=== PATIENT | female | born 1995 | race Caucasian/White ===

== ENCOUNTER 2023-05-30 10:02 | Emergency (ER) | payer OTHER, BC, SELFPAY ==
--- NOTE | ~2023-05-30 | XR_ITS ---
EXAMINATION: XR knee LT min 4V DATE: 05/30/2023 10:24 INDICATION: Left knee pain. Injury. TECHNIQUE: 4 views of left knee were obtained. COMPARISON: None. FINDINGS: Bone alignment is normal. No fracture. Joint spaces are normal. No knee joint effusion. IMPRESSION: 1. Normal left knee. Reviewed, dictated and finalized at location E. IMPRESSION: 1. Normal left knee.
[2023-05-30 10:05] VITALS: BP 135/79; PULSE 94; RESP 18; TEMP 36.5; O2SAT 100
--- NOTE | 2023-05-30 11:11 | ED.LOWEXIN ---
HPI - Extremity Injury (Lower) General Chief Complaint: Extremity Injury, Lower Stated Complaint: Fall Time Seen by Provider: 05/30/23 10:34 History of Present Illness HPI Narrative: 28-year-old female reports for evaluation for left knee pain after a mechanical fall that occurred prior to arrival. Patient states she was walking a great [place] when a great team pulled on the leash and caused her to fall and land directly on the anterior aspect of her left knee. She is reporting pain to the anterior knee that is worse with weightbearing. She denies a twisting injury or mechanism. Denies paresthesias. Denies hitting her head or LOC, no other injuries acquired. Review of Systems Review of Systems: CONSTITUTIONAL: Denies fever, chills EYES: Denies visual changes, redness, or discharge. ENT: Denies rhinorrhea, congestion, sore throat, or otalgia. CARDIOVASCULAR: Denies chest pain, palpitations, or edema. RESPIRATORY: Denies cough or dyspnea. GASTROINTESTINAL: Denies abdominal pain, nausea, vomiting, or diarrhea. GENITOURINARY: Denies dysuria or hematuria. SKIN: Denies rash or itching. MUSCULOSKELETAL: See HPI NEUROLOGIC: Denies headache, numbness, dizziness, or weakness. PSYCHIATRIC: Denies anxiety or depression. Exam Narrative: GENERAL: Well-appearing, in no acute distress. HEAD: Normocephalic NECK: Supple. CHEST: No respiratory distress. Clear to auscultation, no adventitious breath sounds. HEART: Regular rate and rhythm. No murmur heard. Normal peripheral pulses. EXTREMITIES: LLE: Tenderness to the proximal tibia into the lateral joint line without overlying ecchymosis, edema, erythema, lacerations or abrasions. No tenderness to remainder of knee, tib-fib, ankle, foot, femur or hip. Negative anterior and posterior drawer. No laxity with varus or valgus stress. DP pulse 2+. Sensation intact throughout. Patient able to actively and passively move knee and ankle. SKIN: Warm, dry, no rash. NEURO: No focal deficits. Alert and oriented x3. PSYCH: Normal mood and affect. Course Vital Signs Vital signs: Vital Signs Temperature 97.7 F 05/30/23 10:05 Pulse Rate 94 05/30/23 10:05 Respiratory Rate 18 05/30/23 10:05 Blood Pressure 135/79 05/30/23 10:05 Pulse Oximetry 100 05/30/23 10:05 Oxygen Delivery Room Air 05/30/23 10:05 Temperature 97.7 F 05/30/23 10:05 Pulse Rate 94 05/30/23 10:05 Respiratory Rate 18 05/30/23 10:05 Blood Pressure 135/79 05/30/23 10:05 Pulse Oximetry 100 05/30/23 10:05 Oxygen Delivery Room Air 05/30/23 10:05 MDM - Extremity Injury (Lower) MDM Narrative Medical decision making narrative: 28-year-old female reports for evaluation for left knee pain after a mechanical fall that occurred prior to arrival. See HPI for further history. Vitals are stable and exam is significant for the above. She is neurovascularly intact. X-rays show no acute osseous abnormality. Labs and imaging discussed with the patient. Mechanism and exam are not consistent with ligamentous injury. Ibuprofen, Felice bandage and crutches provided. Encourage close PCP follow-up, RICE, Tylenol and ibuprofen. Strict ED return precautions discussed. She is agreeable with the plan verbalized understanding. Discharged in stable condition. Medical Records Attestation: I reviewed the patient's medical records. Imaging Data Radiologist's impression: Impressions Knee X-Ray 05/30/23 10:25 IMPRESSION: 1. Normal left knee. Discharge Plan Discharge Clinical Impression: Contusion of knee Qualifiers: Encounter type: initial encounter Laterality: left Qualified Code(s): S80.02XA - Contusion of left knee, initial encounter Patient Disposition: Home, Self-Care Condition: Stable Instructions: Antibiotic Form, Knee Pain (ED) Additional Instructions: Your evaluated emergency department for left knee pain. Your x-rays are unremarkable and your exam is reassuring. Nandini
[2023-05-30] MEDS: Please add drug allergy info to patient profile. XX (11:31)
[2023-05-30] MEDS: IBUPROFEN 600 MG TABLET PO (11:31)
[2023-05-30 11:50] VITALS: BP 122/89; PULSE 87; RESP 15; O2SAT 99
== END 2023-05-30 11:52 | disposition home or self-care (01) ==
PROVIDERS: Emergency Provider Physician Assistant
DX: S80.02XA Contusion of left knee, initial encounter (principal); Y93.K1 Activity, walking an animal; W54.8XXA Other contact with dog, initial encounter
CPT/HCPCS: 73564; 99283; A9270

== ENCOUNTER 2024-02-11 08:28 | Emergency (ER) | payer BC, SELFPAY ==
--- NOTE | ~2024-02-11 | CT_ITS ---
EXAMINATION: CT abdomen pelvis w con DATE: 02/11/2024 09:23 INDICATION: Right lower quadrant abdominal pain TECHNIQUE: Computed tomography (CT) of the abdomen and pelvis was performed with 100 mL Omnipaque-350 intravenous contrast. Automated exposure control and iterative reconstruction technique were employe d. The dose-length product was 1190.99 mGy-cm. COMPARISON: None FINDINGS: Lung bases are clear. Heart size is normal. No pericardial or pleural effusion. A few small hepatic c ysts measuring up to 1 cm. Liver, spleen, bilateral adrenal glands and left kidney are normal. 1.2 cm right renal cyst. There are several surgical clips at the head of the pancreas where there appears t o be a parenchymal defect likely related to prior surgery. Correlate with surgical history. Bowels in cluding the appendix are normal. Bladder, retroverted uterus and bilateral adnexa are unremarkable. N o free intraperitoneal gas or fluid. No pathologically enlarged abdominal or pelvic lymphadenopathy. Mild likely physiologic anterior wedging at T11 and minimal at T12. Mild thoracic and minimal lumbar spondylosis. IMPRESSION: 1. No acute intra-abdominal/pelvic process. Specifically the appendix is normal. Reviewed, dictated and finalized at location A. IMPRESSION: 1. No acute intra-abdominal/pelvic process. Specifically the appendix is normal .
--- NOTE | ~2024-02-11 | US_ITS ---
EXAMINATION: US pelvic complete w TV DATE: 02/11/2024 10:51 INDICATION: Lower abdominal pain TECHNIQUE: Multiple transabdominal and endovaginal sonographic images of the pelvis were obtained. COMPARISON: None. FINDINGS: The uterus measures 6.5 x 3.3 x 4.7 cm. The endometrial complex measures . mm in thickness. The righ t ovary measures 3.0 x 2.6 x 2.3 cm. The left ovary measures 3.1 x 2.5 x 2.5 cm. There are a few sub centimeters anechoic cysts/follicles at the periphery of both the left and right ovaries. Vascular fl ow with both arterial and venous waveforms identified in both ovaries on color Doppler. There is mini mal free fluid in the pelvis. IMPRESSION: 1. Multiple subcentimeter peripheral anechoic cysts/follicles at both ovaries which can be seen with polycystic ovarian disease. Otherwise unremarkable pelvic ultrasound with minimal likely physiologic free fluid in the pelvis. Reviewed, dictated and finalized at location A. IMPRESSION: 1. Multiple subcentimeter peripheral anechoic cysts/follicles at both ovaries w hich can be seen with polycystic ovarian disease. Otherwise unremarkable pelvic ultrasound with minimal likely physiologic free fluid in the pelvis.
[2024-02-11 08:31] VITALS: BP 152/96; PULSE 123; RESP 19; TEMP 36.7; O2SAT 100
[2024-02-11 08:43] LABS: Basophils Percent Auto 0.3 % (0.2-1.2); Eosinophils Absolute Auto 0.2 K/mm3 (0-0.3); Eosinophils Percent Auto 1.3 % (0-4.4); Hematocrit 41.2 % (37.0-47.0); Hemoglobin 13.2 g/dL (12.0-15.0); Immature Granulocyte Absolute 0.04 K/mm3 (0.00-0.031); Immature Granulocyte Percent A 0.3 % (0-0.5); Lymphocytes Absolute Auto 3.52 K/mm3 (0.9-3.2); Lymphocytes Percent Auto 29.9 % (18.3-44.2); Mean Corpuscular Hemoglobin 27.4 pg (26-34); Mean Corpuscular Volume 85.5 fl (80-100); Mean Platelet Volume 10.9 fl (7.4-10.4); Monocytes Absolute Auto 0.5 K/mm3 (0.1-0.6); Monocytes Percent Auto 4.6 % (2.6-8.5); Neutrophils Absolute Auto 7.5 K/mm3 (1.3-6.7); Neutrophils Percent Auto 63.6 % (45.5-73.1); Platelet Count Result 316 k/mm3 (150-375); Red Blood Count 4.82 M/mm3 (4.2-5.4); Red Cell Distribution Width 14.5 % (11.5-14.5); White Blood Count 11.8 K/mm3 (4.5-10.0)
[2024-02-11 08:53] LABS: Alanine Aminotransferase 31 U/L (6-35); Albumin Level 4.5 g/dL (3.5-5.1); Alkaline Phosphatase 98 U/L (38-126); Anion Gap 10 mmol/L (4-12); Aspartate Amino Transferase 24 U/L (14-36); Bilirubin,Total 0.5 mg/dL (0.2-1.3); Blood Urea Nitrogen 14 mg/dL (7-17); Calcium 9.3 mg/dL (8.4-10.2); Carbon Dioxide 26 mmol/L (22-30); Chloride 104 mmol/L (98-107); Estimated CRCL calculation 82 ml/min; Estimated Glomerular Filt Rate > 60; Glucose 118 mg/dL (65-110); Lipase 73 U/L (23-300); Potassium 3.9 mmol/L (3.4-5.0); Sodium 140 mmol/L (137-145)
[2024-02-11 08:53] LABS: Appearance Urine Clear (Clear); Bacteria Urine None Seen /hpf; Bilirubin Urine Negative (Negative); Blood Urine Negative (Negative); Color Urine Yellow (Yellow); Glucose Urine UA Negative (Negative); Ketones Urine Negative (Negative); Leukocyte Esterase Ur Trace LEU/UL (Negative); Nitrate Urine Negative (Negative); Non Pathogenic Casts 0-2; Protein Urine Negative (Negative); RBC Urine 0-2 /hpf (0-2); Specific Grav Ur 1.019 (1.001-1.035); Squamous Epithelial Cell Urine Occasional /hpf (Few); WBC Urine 0-5 /hpf (0-3); pH Urine 5.5 (5.0-9.0)
[2024-02-11 08:54] LABS: Add Urine Microscopic? YES
[2024-02-11] MEDS: MORPHINE SULFATE (*CRX) 4 MG/ML INJ IV PUSH (09:35)
[2024-02-11] MEDS: ONDANSETRON INJ 4 MG/2 ML VIAL IV PUSH (09:35)
[2024-02-11 09:36] VITALS: BP 134/69; PULSE 95; RESP 18; TEMP 36.5; O2SAT 98
[2024-02-11 10:30] VITALS: BP 119/71; PULSE 77; RESP 18; TEMP 36.6; O2SAT 97
--- NOTE | 2024-02-11 10:46 | ED.GENADULT ---
HPI - General Adult General Chief complaint: Abdominal Pain Stated complaint: ABDOMINAL PAIN Time Seen by Provider: 02/11/24 08:39 History of Present Illness HPI narrative: Patient is a 29-year-old female who presents ER with abdominal pain. Cramping not her abdomen and has been down to her right lower abdomen. Has history of PCOS. No urinary frequency urgency or dysuria. No chest pain chest pressure. No aggravating or alleviating factors. No vaginal bleeding or vaginal discharge. Related Data Allergies Allergy/AdvReac Type Severity Reaction Status Date / Time No Known Allergies Allergy Verified 02/11/24 08:33 Review of Systems Review of Systems: All systems reviewed & are unremarkable except as noted in HPI and below Constitutional: Constitutional: Reports no additional constitutional complaints ENT: Reports system reviewed and no additional complaints, except as documented Cardiovascular: Cardiovascular: Reports no additional cardiovascular complaints Respiratory: Respiratory: Reports no additional respiratory complaints Gastrointestinal: Gastrointestinal: Reports abdominal pain, Denies nausea and Denies vomiting Musculoskeletal: Musculoskeletal: Reports no additional musculoskeletal complaints PMFSH Past Medical History Medical History (Updated 02/11/24 @ 12:13 by Slim López MD) Polycystic ovarian syndrome Exam Narrative: GENERAL: Well-appearing, well-nourished, and in no acute distress. HEAD: Normocephalic, atraumatic. ENT: Mucous membranes moist. CHEST: Clear to auscultation. No respiratory distress. HEART: Regular rate and rhythm. Normal peripheral pulses. ABDOMEN: Soft, nontender, nondistended. EXTREMITIES: Normal range of motion. No edema. SKIN: Warm, dry, no rash. NEURO: Alert and oriented x3. PSYCH: Normal mood and affect. Course Course Emergency Course: Patient formed results. Discharge home. Pain improved. Vital Signs Vital signs: Vital Signs Temperature 98.1 F 02/11/24 08:31 Pulse Rate 123 H 02/11/24 08:31 Respiratory Rate 19 02/11/24 08:31 Blood Pressure 152/96 H 02/11/24 08:31 Pulse Oximetry 100 02/11/24 08:31 Oxygen Delivery Room Air 02/11/24 08:31 Temperature 97.8 F 02/11/24 11:35 Pulse Rate 89 02/11/24 11:35 Respiratory Rate 16 02/11/24 11:35 Blood Pressure 122/68 02/11/24 11:35 Pulse Oximetry 99 02/11/24 11:35 Oxygen Delivery Room Air 02/11/24 08:31 Medical Decision Making Vital Signs Vital Signs: Vital Signs Temperature 98.1 F 02/11/24 08:31 Pulse Rate 123 H 02/11/24 08:31 Respiratory Rate 19 02/11/24 08:31 Blood Pressure 152/96 H 02/11/24 08:31 Pulse Oximetry 100 02/11/24 08:31 Oxygen Delivery Room Air 02/11/24 08:31 Temperature 97.8 F 02/11/24 11:35 Pulse Rate 89 02/11/24 11:35 Respiratory Rate 16 02/11/24 11:35 Blood Pressure 122/68 02/11/24 11:35 Pulse Oximetry 99 02/11/24 11:35 Oxygen Delivery Room Air 02/11/24 08:31 Lab Data 02/11/24 08:38 02/11/24 08:38 Labs: Lab Results 02/11/24 02/11/24 Range/Units 08:38 08:43 WBC 11.8 H (4.5-10.0) K/mm3 RBC 4.82 (4.2-5.4) M/mm3 Hgb 13.2 (12.0-15.0) g/dL Hct 41.2 (37.0-47.0) % MCV 85.5 (80-100) fl MCH 27.4 (26-34) pg MCHC 32.0 (32-36) g/dl RDW 14.5 (11.5-14.5) % Plt Count 316 (150-375) k/mm3 MPV 10.9 H (7.4-10.4) fl Immature Gran % (Auto) 0.3 (0-0.5) % Neut % (Auto) 63.6 (45.5-73.1) % Lymph % (Auto) 29.9 (18.3-44.2) % [place] % (Auto) 4.6 (2.6-8.5) % Eos % (Auto) 1.3 (0-4.4) % Baso % (Auto) 0.3 (0.2-1.2) % Lymph # (Auto) 3.52 H (0.9-3.2) K/mm3 [place] # (Auto) 0.5 (0.1-0.6) K/mm3 Eos # (Auto) 0.2 (0-0.3) K/mm3 Baso # (Auto) 0.0 (0.0-0.1) K/mm3 Abs Immat Gran (auto) 0.04 H (0.00-0.031) K/mm3 Absolute Neuts (auto) 7.5 H (1.3-6.7) K/mm3 Absolute Nucleated RBC 0.000 (0.0-0.012) K/
[2024-02-11 11:35] VITALS: BP 122/68; PULSE 89; RESP 16; TEMP 36.6; O2SAT 99
[2024-02-11 12:24] VITALS: BP 118/68; PULSE 66; RESP 18; TEMP 36.7; O2SAT 98
== END 2024-02-11 12:26 | disposition home or self-care (01) ==
PROVIDERS: Emergency Provider Emergency Medicine
DX: E28.2 Polycystic ovarian syndrome (principal)
CPT/HCPCS: 36415; 74177; 76830; 76856; 80053; 81001; 81025; 83690; 85025; 96374; 96375; 99284; J2270; J2405; Q9967

== ENCOUNTER 2024-07-15 17:08 | Emergency (ER) | payer BC, SELFPAY ==
--- NOTE | ~2024-07-15 | XR_ITS ---
EXAMINATION: XR pelvis 1-2V DATE: 07/15/2024 18:29 INDICATION: Left hip injury. Fall. TECHNIQUE: An anteroposterior view of the pelvis was obtained. COMPARISON: None. FINDINGS: Alignment is normal. No fracture. Joint spaces are normal. IMPRESSION: 1. Normal pelvis. Reviewed, dictated and finalized at location A. Y ROOM SUPERVISOR IMPRESSION: 1. Normal pelvis.
--- NOTE | ~2024-07-15 | XR_ITS ---
EXAMINATION: XR femur LT min 2V DATE: 07/15/2024 18:29 INDICATION: Left hip injury. Fall. TECHNIQUE: 2 views of left femur on 4 radiographs were obtained. COMPARISON: None. FINDINGS: Alignment is normal. No fracture. Joint spaces are normal. IMPRESSION: 1. Normal left femur. Reviewed, dictated and finalized at location A. OLE PRESSER IMPRESSION: 1. Normal left femur.
--- NOTE | ~2024-07-15 | XR_ITS ---
EXAMINATION: XR foot LT min 3V DATE: 07/15/2024 18:29 INDICATION: Left foot injury. Fall. TECHNIQUE: 3 views of left foot were obtained. COMPARISON: None. FINDINGS: Alignment is normal. No fracture. Joint spaces are normal. IMPRESSION: 1. Normal left foot. Reviewed, dictated and finalized at location A. OR COMMISSARY AGENT IMPRESSION: 1. Normal left foot.
--- NOTE | ~2024-07-15 | XR_ITS ---
EXAMINATION: XR tibia fibula LT 2V DATE: 07/15/2024 18:29 INDICATION: Left lower leg injury. Fall. TECHNIQUE: 2 views of left tibia and fibula on 3 radiographs were obtained. COMPARISON: None. FINDINGS: Alignment is normal. No fracture. Joint spaces are normal. IMPRESSION: 1. Normal left tibia and fibula. Reviewed, dictated and finalized at location A. GER [employer]
[2024-07-15 17:31] VITALS: BP 149/88; PULSE 92; RESP 17; TEMP 36.6; O2SAT 100
--- NOTE | 2024-07-15 18:36 | ED.LOWEXIN ---
HPI - Extremity Injury (Lower) General Chief Complaint: Extremity Injury, Lower <Marry Austin APRN - Last Filed: 07/15/24 18:40> Stated Complaint: glf 07/13, left leg injury/swelling <Marry Austin APRN - Last Filed: 07/15/24 18:40> Time Seen by Provider: 07/15/24 17:30 <Marry Austin APRN - Last Filed: 07/15/24 18:40> Focused HPI: Patient is a 29-year-old female who presents to the ER with left leg pain that starts in her left hip and goes all the way down to her left foot. She reports she slipped on mud 2 days ago and injured her left lower extremity. Patient reports it is very painful to move her left hip, left knee, and left ankle. She reports the entire extremity is swollen. patient reports she has been taking Tylenol and ibuprofen home for pain control. She denies any head injury or loss of consciousness. Patient rates her pain at a 6/10 at this time. GENERAL: Well-appearing, well-nourished, and in no acute distress. HEAD: Normocephalic, atraumatic. CHEST: Clear to auscultation. ?No respiratory distress. HEART: Regular rate and rhythm.? NEURO: ?Alert and oriented x3. FROM in all extremities. Patient screened in triage and initial orders placed.? ?Additional care and disposition to be based upon?diagnostic testing and treatment. <Marry Austin APRN - Last Filed: 07/15/24 18:40> Source: patient <Natan Monson PA-C - Last Filed: 07/16/24 01:29> Mode of arrival: ambulatory <Natan Monson PA-C - Last Filed: 07/16/24 01:29> Limitations: no limitations <Natan Monson PA-C - Last Filed: 07/16/24 01:29> History of Present Illness HPI Narrative: Agree with triage note <Natan oMnson PA-C - Last Filed: 07/16/24 01:29> Related Data Allergies/Adverse Reactions: Allergies Allergy/AdvReac Type Severity Reaction Status Date / Time No Known Allergies Allergy Verified 07/15/24 19:50 <Marry Austin APRN - Last Filed: 07/15/24 18:40> Review of Systems Review of Systems: All systems as dictated in HPI <Natan Monson PA-C - Last Filed: 07/16/24 01:29> PMFSH Past Medical History Medical History: Medical History (Updated 07/16/24 @ 00:01 by Background Dajennifer) Polycystic ovarian syndrome <Marry Austin APRN - Last Filed: 07/15/24 18:40> Exam Narrative: GENERAL: Well-appearing, well-nourished, and in no acute distress. HEAD: Normocephalic, atraumatic. EYES: PERRLA and EOMI. ENT: Nares clear, no rhinorrhea or epistaxis. Mucous membranes moist. Oropharynx without tonsillar hypertrophy exudate or other lesions. NECK: Supple. No adenopathy or masses. CHEST: No respiratory distress. Clear to auscultation. No wheezes rales or rhonchi HEART: Regular rate and rhythm. No murmur heard. Normal peripheral pulses. ABDOMEN: Soft, nontender, nondistended, normal active bowel sounds. MSK: LLE: Mild tenderness to the left lateral hip. Mild tenderness to the medial knee. No deformities. No bruising. Neurovascularly intact distally. Normal ankle joint exam RLE: Benign SKIN: Warm, dry, no rash. NEURO: Alert and oriented x4. No focal deficits. PSYCH: Normal mood and affect. <Natan Monson PA-C - Last Filed: 07/16/24 01:29> Course Vital Signs Vital signs: Vital Signs Temperature 97.8 F 07/15/24 17:31 Pulse Rate 92 07/15/24 17:31 Respiratory Rate 17 07/15/24 17:31 Blood Pressure 149/88 H 07/15/24 17:31 Pulse Oximetry 100 07/15/24 17:31 Oxygen Delivery Room Air 07/15/24 17:31 Temperature 98.6 F 07/15/24 19:43 Pulse Rate 88 07/15/24 19:43 Respiratory Rate 18 07/15/24 19:43 Blood Pressure 138/86 07/15/24 19:43 Pulse Oximetry 98 07/15/24 19:43 Oxygen Delivery Room Air 07/15/24 17:31 <Marry Austin APRN - Last Filed: 07/15/24 18:40> Vital Signs Temperature 97.8 F 07/15/24 17:31 Pulse Rate 92 07/15/24 17:31 Respiratory Rate 17 07/15/24 17:31 Blood Pressure 149/88 H 07/15/24 17:31 Pulse Oximetry 100 07/15/24 17:31 Oxygen Delivery Room Air 07/15/24 17:31 Temperature 98.6 F 07/15/24 19:43 Pulse Rate 88 07/15/24 19:43 Respiratory Rate 18 07/15/24 19:43 Blood Pressure 138/86 07/15/24 19:43 Pulse Oximetry 98 07/15/24 19:43 Oxygen Delivery Room Air 07/15/24 17:31 <Natan Monson PA-C - Last Filed: 07/16/24 01:29> MDM - Extremity Injury (Lower) MDM Narrative Medical decision making narrative: This is a 29-year-old female who presents to the ED for chief complaint of left lower extremity injury with fall today. Vitals are normal. Exam shows mild left lateral hip tenderness. Otherwise exam is relatively benign. X-ray imaging of the pelvis, left femur, left tib-fib, left foot are all negative for acute findings. Patient was given Toradol shot here. Presentation consistent with strains and contusions. Patient will be discharged in stable condition. Supportive measures discussed and return precautions given. Patient is understanding and agreeable with plan for discharge with PCP follow-up. <Natan Monson PA-C - Last Filed: 07/16/24 01:29> Discharge Plan Discharge Clinical Impression: Fall, Acute pain of left hip, Strain of knee and leg, left <Marry Austin APRN - Last Filed: 07/15/24 18:40> Patient Disposition: Home, Self-Care <Marry Austin APRN - Last Filed: 07/15/24 18:40> Condition: Stable <Marry Austin APRN - Last Filed: 07/15/24 18:40> Instructions: Antibiotic Form <Marry Austin APRN - Last Filed: 12/17/24 18:40> Additional Instructions: Your seen in the ER today for a fall and left leg injuries. No fractures were emergent findings on the x-rays. These are probably strains/contusions which will resolve over the next week or 2. Use regular Tylenol and ibuprofen for pain control. If you have any new or worsening symptoms please return to the ER for further evaluation. <Marry Austin APRN - Last Filed: 07/15/24 18:40> Patient Language: Kyrgyz <Marry Austin APRN - Last Filed: 07/15/24 18:40> Follow-up/Referrals: UNKNOWN,DOCTOR [Primary Care Provider] - <Marry Austin APRN - Last Filed: 07/15/24 18:40> Time of Disposition: 19:35 <Marry Austin APRN - Last Filed: 07/15/24 18:40> 19:35 <Natan Monson PA-C - Last Filed: 07/16/24 01:29>
[2024-07-15 19:43] VITALS: BP 138/86; PULSE 88; RESP 18; TEMP 37; O2SAT 98
[2024-07-15] MEDS: KETOROLAC 30 MG/ML VIAL (*BKC) IM (19:51)
== END 2024-07-15 19:57 | disposition home or self-care (01) ==
LOC: ANHED 19:37
PROVIDERS: Emergency Provider Physician Assistant
DX: S79.912A Unspecified injury of left hip, initial encounter (principal); S86.912A Strain of unspecified muscle(s) and tendon(s) at lower leg level, left leg, initial encounter; E28.2 Polycystic ovarian syndrome; W01.0XXA Fall on same level from slipping, tripping and stumbling without subsequent striking against object, initial encounter
CPT/HCPCS: 72170; 73552; 73590; 73630; 96372; 99284; J1885

== ENCOUNTER 2025-06-30 07:06 | Emergency (ER) | payer BC, SELFPAY ==
--- OUTSIDE RECORDS SUMMARY | 2025-06-30 07:08 | XMS_ITS | Clinical Summary ---
Author Organization [facility] Address [address] [place] [address] Care Team Providers Care Band Saw Operator Cake Cutting Name Role Phone Larisa uJrado MD Primary Care Provider [phone] Allergies No known active allergies Medications ALPRAZolam (XANAX) 0.5 mg tablet Take 1 tablet (0.5 mg total) by mouth daily as needed for anxiety 30 tablet 0 Active Additional Information Patient not taking.Reported on 02/21/2024 busPIRone (BUSPAR) 7.5 mg tabletIndication s:Generalized Anxiety Disorder Take 1 tablet (7.5 mg total) by mouth 2 (two) times a day 60 tablet 0 Active Additional Information Patient not taking.Reported on 02/21/2024 topiramate (TOPAMAX) 100 mg tabletIndication s:Intractable migraine with aura with status migrainosus Take 1 tablet (100 mg total) by mouth 2 (two) times a day 60 tablet 5 1 Active Active Problems Problem Noted Date Diagnosed Date Syncope 11/10/2020 Assessment & Plan (11/10/2020 8:49 AM CDT): Uncontrolled Increase topamax to 100mg daily Order MRI/MRA brain Refer to neurology Adult general medical exam 10/13/2020 Panic attacks 09/22/2019 Assessment & Plan (10/28/2019 11:31 AM CDT): Uncontrolled Start Buspar Stop trintellix Grief reaction 08/26/2019 Assessment & Plan (08/26/2019 11:55 AM STONE CARRIAGE OPERATOR): New Order trintellix To see counselor Moderate episode of recurrent major depressive d isorder 08/26/2019 Assessment & Plan (08/26/2019 11:55 AM STONE CARRIAGE OPERATOR): New Order trintellix Class 2 obesity due to exces s calories without serious comorbidity with body mass index (BMI) of 39.0 to 39.9 in adult 02/27/2019 Generalized anxiety disorder 07/02/2018 Assessment & Plan (10/13/2020 9:23 AM CDT): Stable Cont buspar, xanax Migraine headache 11/22/2015 Assessment & Plan (11/10/2020 8:49 AM CDT): Uncontrolled Increase topamax to 100mg daily Order MRI/MRA brain Refer to neurology Assessment & Plan (10/13/2020 9:23 AM CDT): Recurrent Restart topamax Order labs Seasonal allergic rhinitis 11/22/2015 Rib pain on left side 07/09/2013 Pain in the abdomen 05/06/2013 Pancreatic mass 06/17/2012 Overview (05/28/2024): Candy is a 17 y.o. girl who presented to OSH with abdominal pain and was diagnosed with pancreatic mass. She was transferred to for further evaluation. MRI of the abdomen revealed: Encapsulated heterogenous mass in the head of the pancreas with heterogenous enhancement as described above. 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 Surgery and Heme/onc services were consulted to help formulate a plan and it was agreed that resection is the first step. Candy was scheduled for resection approximately 1.5 weeks later and was discharged home given that she was medically quite stable. ddx would include papillary carcinoma, pseudopapillary tumor, less likely lymphoma or pseudocyst. Further differentiation and planning pending the tissue diagnosis. Overweight 03/11/2010 Poison laly 03/17/2009 Molluscum contagiosum 12/19/2005 Acute serous otitis media 07/25/2002 Overview (05/28/2024): 07/25/02 - right UTI (urinary tract infection) 11/26/2001 Overview (05/28/2024): 11/26/01 07/18/02 Nl ARABELLA Laceration of head 10/30/2001 Overview (05/28/2024): Frontal area Erythema infectiosum (fifth disease) 12/03/2000 Streptococcal pharyngitis 10/08/2000 Immunizations Immunization Administration Dates Next Due DTP / HiB 1996,1996,1996 DTaP 02/05/2001, 8,1996,1996,1 Hep A, Pediatric 03/11/2010,04/06/2006 Hep B, Adolescent or Pediatric 1996,1995,1996 Hib (PRP-D) 11/04/1997,1996,1996 ,1996 IPV 02/05/2001 Influenza, Unspecified 08/26/2019(Deferred: Mamta ent Refused) MMR 02/05/2001,11/04/1997 OPV 1996,1996,1996 PPD TEST 12/18/2000 Tdap 03/11/2010 Varicella 03/11/2010,11/04/1997 Surgical History Surgery Date Site/Laterality Comments PANCREAS SURGERY mass removed Medical History Medical History Date Comments Headache Seasonal allergies Hyperglycemia Family History Medical History Relation Name Comments No Known Problems Father Melanoma Father's Sister Diabetes Maternal Grandfather Heart disease Maternal Grandfather Hypertension Maternal Grandmother Heart disease Mother Hypertension Mother Cancer Paternal Grandfather Cancer Paternal Grandmother Hypertension Paternal Grandmother No Known Problems Sister Relation Name Status Comments Father Alive Father's Sister Maternal Grandfather Maternal Grandmother Mother Alive Paternal Grandfather Paternal Grandmother Sister Alive Social History Tobacco Use Types Packs/Day Years Used Date Smoking Tobacco: Never Smokeless Tobacco: Never Alcohol Use Standard Drinks/Week Comments Yes 0 (1 standard drink = 0.6 oz pur e alcohol) AUDIT-C Answer Date Recorded Frequency of Alcohol Consumption Never 02/27/2019 Average Number of Drinks Not on file 019 Frequency of Binge Drinking Not on file 07/2018 PHQ-2 Answer Date Recorded PHQ-2 Score 5 08/26/2019 Personal Safety Answer Date Recorded Getting School Help Needed Not on file 07/15 Comments Unknown Sex and Gender Information Value Date Recorded Sex Assigned at Not on file Legal Sex Female 12:41 AM STONE CARRIAGE OPERATOR Gender Identity Female 10/13/2020 8:49 AM CDT Sexual Orientation Straight 10/13/2020 8: 49 AM CDT Last Filed Vital Signs Vital Sign Reading Time Taken Comments Blood Pressure 100/84 05/28/2024 6:21 PM CDT Pulse 111 05/28/2024 6:21 PM CDT Temperature 37.1 C (98.8 F) 05/28/2024 6:21 PM CDT Respiratory Rate 20 05/28/2024 6:21 PM CDT Oxygen Saturation 98% 05/28/2024 6:21 PM CDT Inhaled Oxygen Concentration - - Weight 103.9 kg (229 lb) 05/28/2024 6:21 PM CDT Height 157.5 cm (5' 2) 05/28/2024 6:21 PM CDT Body Mass Index 41.88 05/28/2024 6:21 PM CDT Plan of Treatment Health Maintenance Due Date Last Done Comments Cervical Cancer Screening 1996 Hepatitis C Screening 1996 Regular Well Visit/Exam 18-64 01/29/2014 DTaP/Tdap/Td Vaccine (7 - Td or Tdap) 03/11/2020 03/11/2010, 02/05/2001, 11/04/1997, Additional history exists Depression Screening 08/26/2020 08/26/2019 HPV Vaccines (1 - 3-dose SCDM series) 01/29/2023 Influenza Vaccine (#1) 2025 Hepatitis B Screening Completed 1996 , 1996, 1996 Varicella Vaccines Completed 03/11/2010, 11/04/1997 Pneumococcal vaccine <65 Aged Out No longer eligible based on patient's age to complete this topic Insurance [employer] ACCESS OOS [employer] OOS Care Teams Band Saw Operator Cake Cutting Relationship Specialty Start Date End Date Larisa Jurado MD PCP - General Family Medicine 02/27/19
--- OUTSIDE RECORDS SUMMARY | 2025-06-30 07:08 | XMS_ITS | Clinical Summary ---
Author Organization [facility] Address [facility] [id number] [place] [address] Care Team Providers Care Benefits Assistant Name Role Phone Unavailable Primary Care Provider Unavailabl e Social History Tobacco Use Types Packs/Day Years Used Date Smoking Tobacco: Never Assessed Comments Unknown Sex and Gender Information Value Date Recorded Sex Assigned at Not on file Legal Sex Female 4:29 PM CDT Gender Identity Not on file Sexual Orientation Not on file Plan of Treatment Health Maintenance Due Date Last Done Comments Cervical Cancer Screening Pa p Smear (Age 21 to 29) Every 3 Years 1996 Cervical Cancer Screening 1996 Annual Physical 01/29/1999 Hepatitis C 01/29/2014 DTaP, Tdap and Td Vaccines ( 1 - Tdap) 01/29/2015 Hepatitis B Vaccines (1 of 3 - 19+ 3-dose series) 01/29/2015 HPV Vaccines (1 - 3-dose SCD M series) 01/29/2023 COVID-19 Vaccine ( - 2024-2 6 season) 2025 Influenza Adult (#1) 2025 Hepatitis A Vaccines Aged Out No long er eligible based on patient's age to complete this topic Meningococcal B Vaccine Aged Out No l onger eligible based on patient's age to complete this topic Meningococcal Vaccine Aged Out No sophie marianna eligible based on patient's age to complete this topic Pneumococcal Vaccine: Pediat rics (0 to 5 Years) and At-Risk Patients (6 to 49 Years) Aged Out No longer eligible b ased on patient's age to complete this topic RSV Immunizations Under 20 Months Aged Out No longer eligible based on patient's age to complete this topic
--- OUTSIDE RECORDS SUMMARY | 2025-06-30 07:08 | XMS_ITS | Clinical Summary ---
Author Organization [facility] Address [address] [place] [address] Care Team Providers Care Environmental Aide Name Role Phone Unavailable Primary Care Provider Unavailabl e Social History Tobacco Use Types Packs/Day Years Used Date Smoking Tobacco: Never Assessed Comments Unknown Sex and Gender Information Value Date Recorded Sex Assigned at Not on file Legal Sex Female 6:01 PM CDT Gender Identity Not on file Sexual Orientation Not on file Plan of Treatment Health Maintenance Due Date Last Done Comments Hepatitis C Virus (HCV) Screening 1996 TdaP Immunization 1996 Human Papillomavirus (HPV) Immunization (1 - 3-dose SCDM series) 01/29/2023 Influenza Immunization (#1) 2025 SARS-COV-2 Immunization ( season) 2025 01/12/2021, 12/22/2020 Respiratory Syncytial Virus (RSV) Immunization (Adult) (1 - 1-dose 75+ series) 01/29/2071 DTaP/Tdap/Td Immunization Discontinued 1996, 1996, 1996 Hepatitis B Immunization Completed 997, 1996, 1996 Meningococcal Immunization (ACWY) Aged Out No longer eligible based on patient's age to complete this topic Pneumococcal Immunization Combined Aged Out No longer eligible based on patient's age to complete this topic Rotavirus Immunization Aged Out No lo nger eligible based on patient's age to complete this topic Insurance [employer] on file
[2025-06-30 07:25] VITALS: BP 141/97; PULSE 91; RESP 16; TEMP 36.6; O2SAT 99
[2025-06-30] MEDS: TETANUS,DIPHTHERIA,AC PERTUSSIS ADULT (0.5 ML) BOOSTRIX IM (08:16)
--- OUTSIDE RECORDS SUMMARY | 2025-06-30 08:28 | XMS_ITS | Clinical Summary ---
Author Organization [facility] Address [address] [address] Care Team Providers Care Delivery Aide Name Role Phone Unavailable Primary Care Provider Unavailabl e Source Comments [facility],non-owned Affiliates and Associated Physician Practices is amultiple site organization consisting of ambulatory clinics and hospital sitesin [place], [place], [place] and [place]. This disclosure is being madepursuant to the Care Everywhere program and may not contain all information available regarding this patient. Last updated 18.[facility] Allergies No known active allergies Medications * Be aware that medications may not be up to date on this document. Alwaysverify current medications with the patient. fexofenadine (JOHNNY) 180 MG tablet Take 1 Tab by mouth once daily. Active meclizine (ANTIVERT) 25 MG tablet Take 1 Tab by mouth 3 times daily as needed for Dizziness. 90 Tab 0 11/28/2013 Active topiramate (TOPAMAX) 100 MG tablet Take 1 Tab by mouth at bedtime 30 Tab 11 07/14/2015 Active Active Problems Problem Noted Date Diagnosed Date Rib pain on left side 07/09/2013 Pain in the abdomen 05/06/2013 Pancreatic mass 06/17/2012 Overview (06/17/2012): Candy is a 17 y.o. girl who [...] planning pending the tissue diagnosis. Overweight 03/11/2010 Overview (06/06/2015): Well child visit 03/11/2010 Overview (03/11/2010): 15 y/o 03/11/10 Poison laly 03/17/2009 Molluscum contagiosum 12/19/2005 Acute serous otitis media 07/25/2002 Overview (03/20/2009): 07/25/02 - right UTI (urinary tract infection) 11/26/2001 Overview (03/20/2009): 11/26/01 07/18/02 Nl ARABELLA Laceration of head 10/30/2001 Overview (03/19/2009): Frontal area Erythema infectiosum (fifth disease) 12/03/2000 Streptococcal pharyngitis 10/08/2000 Immunizations Immunization Administration Dates Next Due DTaP VACCINE IM (6wk-6yrs) 02/05/2001,,1996,1996,04/30 HEP A PEDS 2 DOSE 03/11/2010,04/06/2006 HEP B VACCINE, PED/ADOL 1996,1996, HIB BOOSTER 11/04/1997,1996,1996 ,1996 MMR 02/05/2001,11/04/1997 POLIO IPV 02/05/2001 POLIO OPV 1996,1996,1996 PPD 12/18/2000 TDAP (7yrs+) 03/11/2010 VARICELLA 03/11/2010,11/04/1997 Family History Medical History Relation Name Comments Heart Disease Maternal Grandfather Hypertension Maternal Grandmother Heart Disease Mother Hypertension Mother Cancer - Other Paternal Aunt Malignant me lanoma, cause of Cancer - Esophageal Paternal Grandfather Tumor Paternal Grandfather Brain t umor Lung Cancer Paternal Grandmother Type un known, was a smoker Anesthesia Reaction Neg Hx Relation Name Status Comments Maternal Grandfather Maternal Grandmother Mother Paternal Aunt Paternal Grandfather Paternal Grandmother Social History Tobacco Use Types Packs/Day Years Used Date Smoking Tobacco: Never Smokeless Tobacco: Never Alcohol Use Standard Drinks/Week Comments No 0 (1 standard drink = 0.6 oz pur e alcohol) Comments No Sex and Gender Information Value Date Recorded Sex Assigned at Not on file Legal Sex Female 5:41 AM MANAGER NUCLEAR Gender Identity Not on file Sexual Orientation Not on file Last Filed Vital Signs Vital Sign Reading Time Taken Comments Blood Pressure 114/60 07/14/2015 12:55 PM MANAGER NUCLEAR Pulse 108 11/11/2013 3:17 PM CDT Temperature 37.1 C (98.8 F) 11/11/2013 3:17 PM CDT Respiratory Rate 18 10/14/2013 11:03 AM CDT Oxygen Saturation 100% 11/11/2013 3:17 PM CDT Inhaled Oxygen Concentration - - Weight 85.5 kg (188 lb 7.9 oz) 07/14/2015 12:55 PM MANAGER NUCLEAR Height 159.6 cm (5' 2.84) 07/14/2015 12:[address] Body Mass Index 33.57 07/14/2015 12:55 PM MANAGER NUCLEAR Plan of Treatment Health Maintenance Due Date Last Done Comments HIV SCREENING 01/29/2011 HEPATITIS C SCREENING 01/25/2014 DTAP/TDAP/TD VACCINES (7 - Td or Tdap) 03/11/2020 03/11/2010, 02/05/2001, 11/04/1997, Additional history exists HPV VACCINE (1 - 3-dose SCDM series) 01/29/2023 DEPRESSION SCREENING 07/30/2024 COVID-19 VACCINE ( season) 2025 INFLUENZA VACCINE (#1) 2025 ZOSTER VACCINE (1 of 2) 01/29/2046 HEPATITIS B VACCINE Completed 1996, 1996, 1996 HIB VACCINE Completed 11/04/1997, 09/1996, 1996, Additional history exists MENINGOCOCCAL (Group B) VACCINE SHARED DECISION-MAKING Aged Out No longer eligible based on patient's age to complete this topic MENINGOCOCCAL GROUPS A/C/Y/W VACCINE Aged Out No longer eligible based on patient's age to complete this topic PNEUMOCOCCAL VACCINE Aged Out No long er eligible based on patient's age to complete this topic Insurance [facility] [place] [address] [place] [id number]
--- OUTSIDE RECORDS SUMMARY | 2025-06-30 08:28 | XMS_ITS | Clinical Summary ---
Author Organization [facility] Address [address] [place] [address] Care Team Providers Care Marine Extension Agent Name Role Phone Unavailable Primary Care Provider [...]
--- OUTSIDE RECORDS SUMMARY | 2025-06-30 08:28 | XMS_ITS | Clinical Summary ---
Author Organization [facility] Address [facility] [place] [address] Care Team Providers Care Delicate Fabrics Presser Name Role Phone Unavailable Primary Care Provider [...]
--- OUTSIDE RECORDS SUMMARY | 2025-06-30 08:28 | XMS_ITS | Clinical Summary ---
Author Organization [facility] Address [address] [place] [address] Care Team Providers Care Quality Assurance Technician Name Role Phone Larisa Jurado MD Primary Care Provider [phone] Allergies No known active allergies Medications ALPRAZolam [...] 08/26/2019 Assessment & Plan (08/26/2019 11:55 AM JET HANDLER): New Order trintellix To see counselor Moderate episode of recurrent major depressive d isorder 08/26/2019 Assessment & Plan (08/26/2019 11:55 AM JET HANDLER): New Order trintellix Class 2 obesity due [...] abdomen 05/06/2013 Pancreatic mass 06/17/2012 Overview (05/28/2024): aCndy is a 17 y.o. girl who presented [...] on file Legal Sex Female 12:41 AM JET HANDLER Gender Identity Female 10/13/2020 8:49 AM CDT [...] patient's age to complete this topic Insurance [employer] ACCESS OOS [employer] OOS Care Teams Quality Assurance Technician Relationship Specialty Start Date End Date Larisa Jurado MD PCP - General Family Medicine 02/27/19
--- NOTE | 2025-06-30 13:57 | ED.GENADULT ---
HPI - General Adult General Chief complaint: Unspecified Stated complaint: broke thumb nail off Time Seen by Provider: 06/30/25 07:59 History of Present Illness HPI narrative: Patient had her nails done for her wedding, was planning on soaking off when she got it caught under lid and her nail became avulsed. She was able to hold it back down. Related Data Allergies Allergy/AdvReac Type Severity Reaction Status Date / Time No Known Allergies Allergy Verified 06/30/25 07:07 Review of Systems Review of Systems: All systems reviewed & are unremarkable except as noted in HPI and below [facility] Past Medical History Medical History (Updated 06/30/25 @ 08:08 by Ruth Toussaint MD) Polycystic ovarian syndrome Exam Narrative: EXAMINATION OF ORGAN SYSTEMS/BODY AREAS: Constitutional: Vital signs per nursing GENERAL:[No acute distress, non-toxic appearing.] HEAD: Normal with no signs of head trauma. EYES: EOMI, conjunctiva normal ENT: Hearing grossly intact LUNGS: Nonlabored breathing. HEART: [Regular rate and rhythm], normal cap refill ABD: [Soft], [nontender to palpation] EXT: Normal range of motion SKIN: Some dried blood under left thumbnail NEURO: [Alert. No gross focal sensory or strength deficits.] PSYCH: Normal affect Course Vital Signs Vital signs: Vital Signs Temperature 97.9 F 06/30/25 07:25 Pulse Rate 91 06/30/25 07:25 Respiratory Rate 16 06/30/25 07:25 Blood Pressure 141/97 H 06/30/25 07:25 Pulse Oximetry 99 06/30/25 07:25 Temperature 97.9 F 06/30/25 07:25 Pulse Rate 91 06/30/25 07:25 Respiratory Rate 16 06/30/25 07:25 Blood Pressure 141/97 H 06/30/25 07:25 Pulse Oximetry 99 06/30/25 07:25 [facility] MDM Narrative Medical decision making narrative: Patient presenting with avulsed nail, after her acrylics got caught. On exam it is only partially avulsed, is able to be reset in good position, in discussion with patient I did offer either complete removal of nail or gluing it back into place to let it heal naturally, she opts for the 2nd option which I would agree with. Easily replaced nail and set in good place with Dermabond, she is instructed to gently drill off the fake nail and treatment as short as possible and let the natural nail grow out. Return precautions provided. Tetanus updated. Patient agreeable to plan. Differential Diagnosis Differential Diagnosis: Nail avulsion, laceration Discharge Plan Discharge Clinical Impression: Avulsion of nail Patient Disposition: Home Condition: Stable Instructions: Nail Avulsion (ED) Additional Instructions: Try to sand off your Acrylics and trim your nail as short as possible. If you start having worsening pain, swelling or signs of infection, come back to the emergency room. Patient Language: French Follow-up/Referrals: UNKNOWN,DOCTOR [Primary Care Provider]
== END 2025-06-30 08:21 | disposition home or self-care (01) ==
LOC: ANHED 08:25
PROVIDERS: Emergency Provider Emergency Medicine
DX: S61.102A Unspecified open wound of left thumb with damage to nail, initial encounter (principal); Z23 Encounter for immunization; E28.2 Polycystic ovarian syndrome; W23.0XXA Caught, crushed, jammed, or pinched between moving objects, initial encounter
CPT/HCPCS: 12001; 90471; 90715; 99282